=== PATIENT | female | born 1995 | race African-American/Black ===

== ENCOUNTER 2017-03-19 20:25 | Emergency (ER) | payer SELFPAY ==
[~2017-03-19] VITALS: Ht 157.5 cm; Wt 68.0 kg
[2017-03-19 21:10] VITALS: BP 128/76
[2017-03-19 21:33] LABS: BILIRUBIN,URINE NEGATIVE (NEG); GLUCOSE,URINE NEGATIVE (NEG); NITRITE,URINE NEGATIVE (NEG); PROTEIN,URINE NEGATIVE (NEG-TRACE)
[2017-03-19 21:44] LABS: BACTERIA,URINE FEW /HPF (0-FEW); RBC,URINE 0 /HPF (0-2); SQUAMOUS EPITHELIAL CELL,UR MOD /LPF
[2017-03-19] MEDS ORDERED: DOXY100T9 PO (22:05)
--- NOTE | 2017-03-19 22:06 | PHYS DOC ---
Past Medical History Past Medical History: No Pertinent History Past Surgical History: No Surgical History Smoking: Cigarettes Alcohol Use: Occasionally Drug Use: Marijuana Adult General Chief Complaint Chief Complaint: VAGINAL PROBLEM HPI HPI Patient is a 21 year old female who presents with vaginal pain and burning. She states on for 3 weeks with itching and vaginal burning. Today it worsened. Last menstrual period was one month ago. She's been off her Depo and did not get it renewed for at least a month. Does smoke tobacco. She's had no blood in her urine. No vomiting. No fever or chills. Review of Systems Review of Systems Constitutional: Denies fever or chills Eyes: Denies change in visual acuity, redness, or eye pain HENT: Denies nasal congestion or sore throat Respiratory: Denies cough or shortness of breath Cardiovascular: No chest pain GI: Denies abdominal pain, nausea, vomiting, bloody stools or diarrhea : Some dysuria; no hematuria. Vaginal burning and itching. Musculoskeletal: Denies back pain or joint pain Integument: Denies rash or skin lesions Neurologic: Denies headache, focal weakness or sensory changes Allergies Allergies Allergies Coded Allergies Type Severity Reaction Last Updated Verified No Known Drug Allergies 03/19/17 No Physical Exam Physical Exam Constitutional: Well developed, well nourished, no acute distress, non-toxic appearance. HENT: Normocephalic, atraumatic, bilateral external ears normal, oropharynx moist, no oral exudates, nose normal. Eyes: PERRLA, EOMI, conjunctiva normal, no discharge. Neck: Normal range of motion, no tenderness, supple, no stridor. Cardiovascular:Heart rate regular rhythm, no murmur Lungs & Thorax: Bilateral breath sounds clear to auscultation Abdomen: Bowel sounds normal, soft, no tenderness, no masses, no pulsatile masses. : Hearing Healthcare Practitioner present. Normal external genitalia, no skin lesions or rash. Vaginal exam with discharge, whitish in color. Cervical motion tenderness noted on exam. No masses palpable. Bleeding. Skin: Warm, dry, no erythema, no rash. Back: No tenderness, no CVA tenderness. Extremities: No tenderness, no cyanosis, no clubbing, ROM intact, no edema. Neurologic: Alert and oriented X 3, normal motor function, normal sensory function, no focal deficits noted. Psychologic: Affect normal, judgement normal, mood normal. Current Patient Data Vital Signs Vital Signs Date Time Temp Pulse Resp B/P (MAP) Pulse Ox O2 Delivery O2 Flow Rate FiO2 03/19/17 21:10 98.8 89 16 128/76 (93) 100 Room Air 98.8 Lab Values Laboratory Tests Test 03/19/17 20:32 03/19/17 20:50 POC Urine HCG, Qualitative Hcg negative (Negative) Urine Collection Type Unknown Urine Color Yellow Urine Clarity Cloudy Urine pH 6.0 Urine Specific [place] >=1.030 Urine Protein Negative mg/dL (NEG-TRACE) Urine Glucose (UA) Negative mg/dL (NEG) Urine Ketones (Stick) Trace mg/dL (NEG) Urine Blood Negative (NEG) Urine Nitrite Negative (NEG) Urine Bilirubin Negative (NEG) Urine Urobilinogen Dipstick 1.0 mg/dL (0.2 mg/dL) Urine Leukocyte Esterase Moderate (NEG) Urine RBC 0 /HPF (0-2) Urine WBC 1-4 /HPF (0-4) Urine Squamous Epithelial Cells Mod /LPF Urine Bacteria Few /HPF (0-FEW) Urine Mucus Marked /LPF Microbiology 03/19/17 Wet Prep - Final, Complete Course & Med Decision Making Course & Med Decision Making Urine test is negative. We will treat her for cervicitis. Rocephin IM was given here. She'll be placed on doxycycline. Informed to follow-up with the health department or with her PCP on her cultures. Mariluon Disclaimer Mariluon Disclaimer This electronic medical record was generated, in whole or in part, using a voice recognition dictation system. Departure Departure Impression: Primary Impression: Cervicitis Disposition: 01 HOME, SELF-CARE Condition: STABLE Referrals: NO PCP (PCP) Patient Instructions: Cervicitis, Sexually Transmitted Disease Additional Instructions: YOU WERE TREATED HERE FOR PRESUMPTIVE CERVICAL INFECTION. YOUR CULTURES HAVE BEEN SENT OFF BUT WILL TAKE AT LEAST A WEEK. AFTER YOU HAVE COMPLETED THE ANTIBIOTICS YOU NEED TO BE RECHECKED. THE HEALTH DEPT CAN DO THAT FOR YOU. YOUR TEST WAS NEGATIVE Scripts Doxycycline Hyclate (DOXYCYCLINE HYCLATE) 100 Mg Tablet. 1 TAB PO BID, #14 TAB Prov: BRENDAN FARIAS MD 03/19/17 BRENDAN FARIAS MD Mar 19, 2017 22:06
[2017-03-19] MEDS ORDERED: cefTRIAXone IM 1 GM VIAL IM ONE (22:15)
== END 2017-03-19 22:47 | disposition home or self-care (01) ==
LOC: ER 20:25
DX: N72 Inflammatory disease of cervix uteri (principal); F17.210 Nicotine dependence, cigarettes, uncomplicated
CPT/HCPCS: 81001; 81025; 87086; 87491; 87591; 99284; Q0111

== ENCOUNTER 2017-08-07 | Emergency (ER) | payer SELFPAY ==
[2017-08-07 00:30] LABS: URINE HCG POC HCG NEGATIVE (Negative)
[2017-08-07] MEDS ORDERED: DOXYCYCLINE HYCLATE 100 MG TABLET PO (03:00)
[2017-08-08 14:19] LABS: CHLAMYDIA PROBE Negative (Negative); GC PROBE Negative (Negative)
== END 2017-08-07 03:00 | disposition home or self-care (01) ==
LOC: ER
DX: N76.2 Acute vulvitis (principal); F12.10 Cannabis abuse, uncomplicated
CPT/HCPCS: 81025; 87491; 87591; 99284; Q0111

== ENCOUNTER 2017-09-16 18:50 | Emergency (ER) | payer SELFPAY ==
[2017-09-16] MEDS: ONDANSETRON ODT 4 MG TAB.RAPDIS. PO (19:52)
[2017-09-16] MEDS: diphenhydrAMINE HCL 25 MG CAPSULE PO (19:52)
[2017-09-16] MEDS: traMADol 50 MG TABLET PO (19:52)
== END 2017-09-16 20:47 | disposition home or self-care (01) ==
LOC: ER 18:50
DX: R51 Headache (principal); F12.10 Cannabis abuse, uncomplicated; V49.88XA Car occupant (driver) (passenger) injured in other specified transport accidents, initial encounter; Y93.89 Activity, other specified; Y99.8 Other external cause status; Y92.488 Other paved roadways as the place of occurrence of the external cause
CPT/HCPCS: 99284; Q0162; Q0163

== ENCOUNTER 2018-05-31 16:16 | Observation (INO) | payer OTHER ==
[2017-09-16 19:16] VITALS: BP 114/67
[~2018-05-31] VITALS: Ht 163.8 cm; Wt 70.3 kg
[~2018-05-31 16:16] MED LIST: DOXY100C14 PO; DOXY100T9 PO
[2018-05-31] MEDS ORDERED: IV RINGERS,LACTATED 1000ML 1,000 ML IV PRN (17:15)
[2018-05-31] MEDS ORDERED: ACETAMINOPHEN 325 MG TABLET. PO PRN (17:15)
[2018-05-31 17:37] LABS: BILIRUBIN,URINE NEGATIVE (NEG); CLARITY,URINE CLOUDY; COLOR,URINE YELLOW; NITRITE,URINE NEGATIVE (NEG); PH,URINE 7.5; PROTEIN,URINE NEGATIVE (NEG-TRACE)
[2018-05-31 17:47] LABS: AMORPHOUS SEDIMENT,UR PRESENT /HPF; BACTERIA,URINE MODERATE /HPF (0-FEW); RBC,URINE 0 /HPF (0-2); SQUAMOUS EPITHELIAL CELL,UR MOD /LPF; WBC,URINE 20-40 /HPF (0-4)
== END 2018-05-31 19:07 | disposition home or self-care (01) ==
LOC: 3 SO LND 16:16
PROVIDERS: ADMIT Specialist; ATTEND Specialist
DX: O99.89 Other specified diseases and conditions complicating pregnancy, childbirth and the puerperium (principal); M54.5 Low back pain; Z3A.26 26 weeks gestation of pregnancy; Z79.899 Other long term (current) drug therapy
CPT/HCPCS: 81001; 87086; G0378; G0379

== ENCOUNTER 2018-08-29 18:56 | Inpatient (IN) | payer OTHER ==
[~2018-08-29] VITALS: Ht 160 cm; Wt 79.4 kg
[2018-08-29] MEDS ORDERED: ONDANSETRON PF 4 MG/2 ML VIAL. IV PRN (19:30)
[2018-08-29] MEDS ORDERED: 0.9 % SODIUM CHLORIDE 10 ML DISP.SYRIN. IV PRN (19:30)
[2018-08-29] MEDS ORDERED: TERBUTALINE 1 MG/ML VIAL. SQ PRN (19:30)
[2018-08-29] MEDS ORDERED: fentaNYL PF VIAL 100 MCG/2 ML VIAL IV PRN ×2 (19:30)
[2018-08-29] MEDS ORDERED: ACETAMINOPHEN 325 MG TABLET. PO PRN (19:30)
[2018-08-29] MEDS ORDERED: BUTORPHANOL 2 MG/ML VIAL. IV PRN (19:30)
[2018-08-29] MEDS ORDERED: IBUPROFEN 400 MG TABLET. PO PRN (19:30)
[2018-08-29] MEDS ORDERED: LIDOCAINE 1% PF 30 ML VIAL. INJ PRN (19:30)
[2018-08-29] MEDS ORDERED: OXYTOCIN 30 UNIT/500 ML PREMIX 500 ML IV PRN (19:30)
[2018-08-29] MEDS ORDERED: CITRIC ACID/SODIUM CITRATE 30 ML SOLUTION. PO PRN (19:30)
[2018-08-29] MEDS: IV RINGERS,LACTATED 1000ML 1,000 ML IV SCH ×2 (19:51→23:59)
[2018-08-29] MEDS ORDERED: DINOPROSTONE 10 MG SUPP.VAG VG ONE (20:00)
[2018-08-29 20:05] LABS: BASO % 0 % (0-3); EOS # 0.1 x10^3/uL (0.0-0.7); EOS % 1 % (0-3); LYMPH % 35 % (24-48); MEAN CORPUSCULAR HEMOGLOBIN 27 pg (25-35); MEAN CORPUSCULAR HGB CONC 32 g/dL (31-37); MEAN CORPUSCULAR VOLUME 83 fL (79-100); MONO # 0.5 x10^3/uL (0.0-1.1); MONO % 9 % (0-9); NEUT # 3.1 x10^3uL (1.8-7.7); NEUT % 54 % (31-73); PLATELET COUNT 226 x10^3/uL (140-400); RED BLOOD COUNT 3.73 x10^6/uL (3.50-5.40); RED CELL DISTRIBUTION WIDTH 13.3 % (11.5-14.5); WHITE BLOOD COUNT 5.6 x10^3/uL (4.0-11.0)
[2018-08-29 20:07] LABS: BILIRUBIN,URINE NEGATIVE (NEG); CLARITY,URINE CLEAR; COLOR,URINE YELLOW; NITRITE,URINE NEGATIVE (NEG); PROTEIN,URINE NEGATIVE (NEG-TRACE)
[2018-08-29 20:12] VITALS: BP 124/81
[2018-08-29 20:14] LABS: BACTERIA,URINE FEW /HPF (0-FEW); RBC,URINE OCC /HPF (0-2); SQUAMOUS EPITHELIAL CELL,UR MOD /LPF
[2018-08-29 20:22] LABS: BARBITURATES NEG (NEG); BENZODIAZEPINES NEG (NEG); CANNABINOIDS POS (NEG); COCAINE NEG (NEG); METHADONE NEG (NEG); OPIATES NEG (NEG); PHENCYCLIDINE NEG (NEG)
[2018-08-29 20:25] LABS: AMPHETAMINE/METHAMPHETAMINE NEG (NEG)
[2018-08-29] MEDS: ZOLPIDEM 5 MG TABLET. PO PRN (23:59)
[2018-08-30] MEDS ORDERED: OXYTOCIN 30 UNIT/500 ML PREMIX 500 ML IV PRN ×2 (06:00→18:00)
[2018-08-30] MEDS: IV RINGERS,LACTATED 1000ML 1,000 ML IV SCH ×2 (06:20→16:52)
--- NOTE | 2018-08-30 17:57 | PDOC1 ---
OB - History Hx of Present Care: Good Care Ultrasounds: No ultrasounds Obstetrical Complications: None Medical Complications: None Past Family/Social History * Past Medical, Surgical, Family and Obstetric Histories reviewed from chart. Blood Type: A+ Rubella: Immune RPR/VDRL: Negative GBS Status: Negative HBsAG: Negative OB - Chief Complaint & HPI Date of Admission: Date of Admission: Aug 29, 2018 at 18:56 Chief Complaint/History : 2 Para: 1 EDC: Sep 03, 2018 Reason for admission: induction of labor Indication for induction: other Admission Nurse Assessment Rev: Yes OB - Admission Exam Physical Exam Vitals: VS - Last 72 Hours, by Label Date Time Temp Pulse Resp B/P (MAP) Pulse Ox O2 Delivery O2 Flow Rate FiO2 08/30/18 16:29 20 Room Air 08/30/18 15:26 20 Room Air 08/29/18 20:12 98.0 95 18 124/81 (95) Room Air 98.0 HEENT: Normal, Nasal Mucosa Normal, Oropharynx Normal, Moist Membranes, Fontanelles Normal Heart: Regular Rate Lungs: Clear, Equal Abdomen: Gravid Extremities: Normal Pulses, No tenderness or swelling Cervical Dilatation: 1cm Effacement: 25% Station: -2 Membranes: Intact Accelerations: Accelerations Present Contractions on Admission: >10 Minutes Apart Intensity: Mild Assessment/Plan Assessment/Plan TIUP Induction ACS MAYNOR HURT MD Aug 30, 2018 17:57
--- NOTE | 2018-08-30 17:59 | PDOC ---
VAGINAL DELIVERY DATE DATE: 08/30/18 TIME: 17:55 : 1 EDC: Sep 03, 2018 VAGINAL DELIVERY: VTX VACCUM ASSISTED: No PLACENTA: Spontaneous SEX: Female WEIGHT 6#8oz Nuchal Cord: No Amniotic Fluid: Clear PAIN: Local EPISIOTOMY: Yes EXTENSION: No EBL 300cc COMPLICATIONS none CONDITION Stable Signs of Intrauterine Infectio: None Shoulder Dystocia: No DIAGNOSIS CSVD MAYNOR HURT MD Aug 30, 2018 17:59
[2018-08-30] MEDS ORDERED: BENZOCAINE 20% TOPICAL AEROSOL SPRAY 57GM CAN. TP PRN (18:00)
[2018-08-30] MEDS ORDERED: MAG HYDROX/ALUMINUM HYD/SIMETH 30 ML ORAL.SUSP PO PRN (18:00)
[2018-08-30] MEDS ORDERED: HYDROCORTISONE 1% TOPICAL OINTMENT 30GM TUBE. TP PRN (18:00)
[2018-08-30] MEDS ORDERED: ZOLPIDEM 5 MG TABLET. PO PRN (18:00)
[2018-08-30] MEDS ORDERED: SIMETHICONE 80 MG TAB.CHEW PO PRN (18:00)
[2018-08-30] MEDS ORDERED: MAGNESIUM HYDROXIDE 2,400 MG/30 ML ORAL.SUSP. PO PRN (18:00)
[2018-08-30] MEDS ORDERED: 0.9 % SODIUM CHLORIDE 10 ML DISP.SYRIN. IV PRN (18:00)
[2018-08-30] MEDS ORDERED: diphenhydrAMINE HCL 25 MG CAPSULE PO PRN (18:00)
[2018-08-30] MEDS ORDERED: PHENYLEPH/MINERAL OIL/PETROLAT RECTAL OINTMENT 28GM TUBE. RC PRN (18:00)
[2018-08-30] MEDS ORDERED: ACETAMINOPHEN 325 MG TABLET. PO PRN (18:00)
[2018-08-30] MEDS: IBUPROFEN 400 MG TABLET. PO SCH (20:09)
[2018-08-30 21:18] VITALS: BP 121/74
[2018-08-30 23:30] VITALS: BP 123/80
[2018-08-30] MEDS: ZOLPIDEM 5 MG TABLET. PO PRN (23:30)
[2018-08-31] MEDS: IV RINGERS,LACTATED 1000ML 1,000 ML IV SCH (03:17)
--- NOTE | 2018-08-31 06:25 | PDOC ---
Provider Note Provider Note Doing well VSS uterus NTTP FU in AM Vital Sign - Last 24 Hours 08/30/18 08/30/18 08/30/18 08/30/18 15:26 16:29 21:10 21:18 Pulse 105 Resp 20 20 16 B/P (MAP) 121/74 (90) Pulse Ox 100 O2 Delivery Room Air Room Air Room Air Room Air 08/30/18 23:30 Temp 98.0 98.0 Pulse 92 Resp 14 B/P (MAP) 123/80 (94) Pulse Ox 97 Intake and Output 08/30/18 08/30/18 08/31/18 15:01 23:01 07:01 Intake Total 1200 ml Balance 1200 ml CBC - BMP 08/31/18 05:05 MAYNOR HURT MD Aug 31, 2018 06:25
[2018-08-31 06:27] VITALS: BP 129/89
[2018-08-31] MEDS: FERROUS SULFATE 325 MG TABLET. PO SCH ×2 (06:39→15:21)
[2018-08-31] MEDS: IBUPROFEN 400 MG TABLET. PO SCH (06:40)
[2018-08-31] MEDS: DOCUSATE SODIUM 100 MG CAPSULE. PO PRN ×2 (06:40→15:21)
[2018-08-31] MEDS ORDERED: DIPHTH,PERTUSS(ACELL),TET TOX 0.5 ML DISP.SYRIN. VAX IM ONE (08:00)
[2018-08-31] MEDS: oxyCODONE/APAP 5/325 1 TAB TABLET PO PRN ×2 (08:52→15:21)
[2018-08-31 11:30] VITALS: BP 118/78
[2018-08-31] MEDS: IBUPROFEN 400 MG TABLET. PO PRN (15:22)
[2018-08-31 18:42] VITALS: BP 125/83
[2018-08-31 20:00] VITALS: BP 125/83
[2018-09-01] MEDS: oxyCODONE/APAP 5/325 1 TAB TABLET PO PRN ×2 (01:45→09:20)
[2018-09-01 06:41] VITALS: BP 123/65
[2018-09-01] MEDS: DOCUSATE SODIUM 100 MG CAPSULE. PO PRN (09:19)
[2018-09-01] MEDS: FERROUS SULFATE 325 MG TABLET. PO SCH (09:19)
[2018-09-01] MEDS: IBUPROFEN 400 MG TABLET. PO PRN (09:21)
[2018-09-01 09:28] VITALS: BP 120/81
--- NOTE | 2018-09-01 12:48 | PDOC3 ---
OB DISCHARGE SUMMARY DATE OF ADMISSION: 08/30/18 DATE OF DISCHARGE: 09/01/18 REASON FOR ADMISSION: Onset of labor INTRAPARTUM PROCEDURES: Spontanous Vag Deliv DISCHARGE DIAGNOSIS: Term Delivered DISCHARGE INFORMATION: Activity (ad rhoda), Diet (regular), Instructions (pelvic rest x 6 wks) HOSPITAL COURSE Term gestation delivered vaginally without complications. LARRY CHUNG Jr, MD Sep 01, 2018 12:48
--- NOTE | 2018-09-01 12:49 | DISCH ---
DISCHARGE INSTRUCTIONS Condition on Discharge Condition on Discharge: Stable Activity After Discharge Activity Instructions for Disc: Activity as tolerated Lifting Instructions after Dis: No heavy lifting Driving Instructions after Dis: Do not drive today Diet after Discharge Diet after Discharge: Regular Contacting the [facility] after DC Call your doctor for: Concerns you may have Follow-Up Follow up with: Dr. Lee in 1 week. LARRY CHUNG Jr, MD Sep 01, 2018 12:49
[2018-09-01] MEDS ORDERED: FERR325T72 PO (12:52)
[2018-09-01] MEDS ORDERED: DOCU-109 PO (12:52)
[2018-09-01] MEDS ORDERED: NAPR-514 PO (12:52)
[2018-09-01] MEDS ORDERED: HYDR-3164 PO (12:52)
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
[2018-09-01 14:17] VITALS: BP 121/77
--- NOTE | 2018-09-01 15:33 | NUR ---
Pt. dc'd to home with family. DC instructions and prescriptions given, v/u. Pt. plans to follow-up with Dr. Lee in one week. Pt. ambulated to personal vehicle accompanied by family and RN.
== END 2018-09-01 15:37 | disposition home or self-care (01) | DRG 807 ==
LOC: 3 SO LND 18:56
PROVIDERS: ADMIT Specialist; ATTEND Specialist
PROC: 10E0XZZ Delivery of Products of Conception, External Approach (ICD-10-PCS; principal; 2018-09-01)
PROC: 0W8NXZZ Division of Female Perineum, External Approach (ICD-10-PCS; 2018-09-01)
DX: O80 Encounter for full-term uncomplicated delivery (principal); Z37.0 Single live birth; Z3A.00 Weeks of gestation of pregnancy not specified
CPT/HCPCS: 36415; 80307; 81001; 85014; 85025; 86592; 86850; 86900; 86901; 90471; 90715; J2590; J3010; J7120; G0378

== ENCOUNTER 2020-07-15 09:58 | Emergency (ER) | payer OTHER ==
[~2020-07-15] VITALS: Ht 165.1 cm; Wt 63.6 kg
[~2020-07-15 09:58] MED LIST changes: +DOCU-109 PO; +DOXY-96 PO; -DOXY100T9 PO; +FERR325T72 PO; +HYDR-3164 PO; +NAPR-514 PO
[2020-07-15 10:05] VITALS: BP 122/58
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
[2020-07-15] MEDS ORDERED: LIDOCAINE 1%/EPI 1:100,000 20 ML VIAL. INJ ONE (10:30)
== END 2020-07-15 10:45 | disposition left against medical advice (07) ==
LOC: ER 09:58
DX: S01.511A Laceration without foreign body of lip, initial encounter (principal); F17.200 Nicotine dependence, unspecified, uncomplicated; Y08.89XA Assault by other specified means, initial encounter; Y93.89 Activity, other specified; Y92.89 Other specified places as the place of occurrence of the external cause; Y99.8 Other external cause status
CPT/HCPCS: 99281